=== PATIENT | male | born 1995 | race Caucasian/White ===

== ENCOUNTER 2018-12-29 21:53 | Emergency (ER) | payer BC ==
[~2018-12-29] VITALS: Ht 180.3 cm; Wt 61.4 kg
[~2018-12-29 21:53] MED LIST: HYDR28CR14 TOP; IBUP-1984 PO
[2018-12-29 22:23] VITALS: BP 132/69
== END 2018-12-29 22:35 | disposition home or self-care (01) ==
LOC: ER 21:53
DX: Z02.89 Encounter for other administrative examinations (principal); J45.909 Unspecified asthma, uncomplicated; F17.210 Nicotine dependence, cigarettes, uncomplicated; Z88.0 Allergy status to penicillin; V49.88XA Car occupant (driver) (passenger) injured in other specified transport accidents, initial encounter; Y93.89 Activity, other specified; Y92.413 State road as the place of occurrence of the external cause; Y99.9 Unspecified external cause status
CPT/HCPCS: 99283